=== PATIENT | male | born 1955 | race Caucasian/White ===

== ENCOUNTER → 2021-03-02 | Outpatient (CLI) | payer OTHER, MEDICARE ==
[~2021-03-02] MED LIST: FLOMAX0.4 MG PO; METHOTREXATE2.5 M1 PO; OXYCONTIN10 M1 PO; SULFAZINE500 MG PO
== END | disposition home or self-care (01) ==
LOC: US 15:30
PROVIDERS: ATTEND Physician Assistant
DX: I80.8 Phlebitis and thrombophlebitis of other sites (principal); Z90.49 Acquired absence of other specified parts of digestive tract